=== PATIENT | female | born 1950 | race Caucasian/White ===

== ENCOUNTER 2017-04-10 19:53 | Emergency (ER) | payer BC ==
[~2017-04-10] VITALS: Ht 172.7 cm; Wt 88.5 kg
[~2017-04-10 19:53] MED LIST: ALPR-475 PO; LEVO750T26 PO; PROP40TA PO
[2017-04-10] MEDS ORDERED: SODIUM CHLORIDE 0.9% 1,000 ML IV ONE (20:06)
[2017-04-10] MEDS ORDERED: SODIUM CHLORIDE FLUSH 10ML SYR IVF ONE (20:30)
[2017-04-10] MEDS ORDERED: ASPIRIN 81 MG TABLET CHEW ONE (20:30)
[2017-04-10] MEDS ORDERED: ASPIRIN 81 MG TABLET CHEW PO ONE (20:30)
[2017-04-10 20:51] LABS: BLOOD UREA NITROGEN 13 mg/dL (7-18)
[2017-04-10 20:57] LABS: ASPARTATE AMINO TRANSFERASE 39 U/L (15-37)
[2017-04-10 21:07] LABS: IS PT STATUS REG ER OR PRE ER? YES
[2017-04-10 21:37] VITALS: BP 130/69
== END 2017-04-10 22:18 | disposition home or self-care (01) ==
LOC: ED 21:49
DX: R00.2 Palpitations (principal); Z88.0 Allergy status to penicillin; Z88.2 Allergy status to sulfonamides
CPT/HCPCS: 36415; 71010; 80053; 84439; 84443; 84484; 85025; 93005